=== PATIENT | female | born 1970 | race Caucasian/White ===

== ENCOUNTER 2018-10-11 20:32 | Emergency (ER) | payer BC ==
[~2018-10-11] VITALS: Ht 172.7 cm; Wt 93.0 kg
--- NOTE | 2018-10-11 20:34 | ED.ADGEN ---
Past History Past Medical History: Arthritis, Other Adult General Chief Complaint Chief Complaint ".. I getting severe neck and Rt. shoulder pain... it been worse the last couple days... I ve been worked up before... for chronic neck and lumbar pain... but the pain has really gotten worse... I see Dr. Chavarria and he said there is nothing new to do... but I am hurting really bad tonight.. " HPI HPI Patient is a 47 year old female who presents with above hx and complaints of arm back and shoulder pain. Pt is localized more to right shoulder trapezius area. Has some muscle spams in this location. Pt. rates pain as 10/10. Pt. has been using heating pad, muscle rubs... but no relief of pain. Pt. has a couple small lesions in this area . Patient does have an old herpes zoster scar on right shoulder. Pt. has had herpes zoster or shingles twice before. Skin however is not particularly sensitive. Patient denies any trauma. Patient denies any travel. Patient denies any history cancer. Patient denies any fever or chills. Patient denies any history of immunosuppression. Patient has had previous cervical and lumbar spine evaluations by MRI. MRI completed on 2017 showed broad-based disc bulge at C6 and 7. With mild central and foraminal stenosis. Also had a disc bulge at C7 and T1 with mild foraminal stenosis. This bulge at C5 and 6 showed broad based disc bulge asymmetric to the right. Pt also found to have some broad-based disc bulge with mild central stenosis and foraminal stenosis also at C3-4. Distal vascular intact on right. Patient is right-hand dominant. Pattern of right. Trapezius pain seems to follow cervical plexus of C5-6-7 on right. Review of Systems Review of Systems Constitutional: Denies fever or chills [] Eyes: Denies change in visual acuity, redness, or eye pain [] HENT: Denies nasal congestion or sore throat []complaints of severe right trapezius muscle spasms and pain. Respiratory: Denies cough or shortness of breath [] Cardiovascular: No additional information not addressed in HPI [] GI: Denies abdominal pain, nausea, vomiting, bloody stools or diarrhea [] : Denies dysuria or hematuria [] Musculoskeletal: Denies back pain or joint pain [] Integument: Denies rash or skin lesions [] Neurologic: Denies headache, focal weakness or sensory changes [] Endocrine: Denies polyuria or polydipsia [] All other systems were reviewed and found to be within normal limits, except as documented in this note. Family History Family History Noncontributory Current Medications Current Medications Current Medications Medications (Trade) Dose Ordered Sig/Yulia Start Time Stop Time Status Last Admin Dose Admin Ketorolac Tromethamine (Toradol 30mg Vial) 30 mg 1X ONCE 10/11/18 21:30 10/11/18 21:31 DC 10/11/18 21:12 30 MG Lactated Ringer's 1,000 ml @ 1,000 mls/hr Q1H 10/11/18 21:30 10/11/18 22:29 DC 10/11/18 21:11 1,000 MLS/HR Morphine Sulfate (Morphine 10mg Syringe) 10 mg 1X ONCE 10/11/18 21:30 10/11/18 21:31 DC 10/11/18 22:51 10 MG Ondansetron HCl (Zofran) 8 mg 1X ONCE 10/11/18 21:30 10/11/18 21:31 DC 10/11/18 21:25 8 MG Orphenadrine Citrate (Norflex) 60 mg 1X ONCE 10/11/18 21:30 10/11/18 21:31 DC 10/11/18 21:14 60 MG Allergies Allergies Allergies Coded Allergies Type Severity Reaction Last Updated Verified ibuprofen Adverse Reaction Mild gi upset 10/11/18 Yes Physical Exam Physical Exam Constitutional: in acute distress, non-toxic appearance. [] HENT: Normocephalic, atraumatic, bilateral external ears normal, oropharynx moist, no oral exudates, nose normal. [] Eyes: PERRLA, EOMI, conjunctiva normal, no discharge. [] Neck: Right trapezius tenderness, supple, no stridor. [] Cardiovascular:Heart rate regular rhythm, no murmur [] Lungs & Thorax: Bilateral breath sounds equal at apexes on auscultation [] Abdomen: Bowel sounds normal, soft, no tenderness, no masses, no pulsatile masses. [] Skin: Warm, dry, no erythema, no rash. [] A few very small lesions on right shoulder blade. Back: No tenderness, no CVA tenderness. [] Extremities: No tenderness, no cyanosis, no clubbing, ROM intact, no edema. [] Old herpes zoster scar right shoulder. Does have obvious muscle spasm right trapezius Neurologic: Alert and oriented X 3, normal motor function, normal sensory function, no focal deficits noted. []DTR are +2 at patella and brachial.. Psychologic: Affect normal, judgement normal, mood normal. [] Current Patient Data Vital Signs Vital Signs Date Time Temp Pulse Resp B/P (MAP) Pulse Ox O2 Delivery O2 Flow Rate FiO2 10/11/18 22:51 18 Room Air 10/11/18 20:35 97.5 78 99 Lab Results Laboratory Tests Test 10/11/18 21:00 White Blood Count 6.8 x10^3/uL (4.0-11.0) Red Blood Count 5.02 x10^6/uL (3.50-5.40) Hemoglobin 13.6 g/dL (12.0-15.5) Hematocrit 40.5 % (36.0-47.0) Mean Corpuscular Volume 81 fL (79-100) Mean Corpuscular Hemoglobin 27 pg (25-35) Mean Corpuscular Hemoglobin Concent 34 g/dL (31-37) Red Cell Distribution Width 15.5 % (11.5-14.5) H Platelet Count 450 x10^3/uL (140-400) H Neutrophils (%) (Auto) 45 % (31-73) Lymphocytes (%) (Auto) 45 % (24-48) Monocytes (%) (Auto) 7 % (0-9) Eosinophils (%) (Auto) 3 % (0-3) Basophils (%) (Auto) 1 % (0-3) Neutrophils # (Auto) 3.1 x10^3uL (1.8-7.7) Lymphocytes # (Auto) 3.0 x10^3/uL (1.0-4.8) Monocytes # (Auto) 0.5 x10^3/uL (0.0-1.1) Eosinophils # (Auto) 0.2 x10^3/uL (0.0-0.7) Basophils # (Auto) 0.1 x10^3/uL (0.0-0.2) Erythrocyte Sedimentation Rate 5 (0-25) Prothrombin Time 9.9 SEC (9.4-11.4) Prothrombin Time INR 1.0 (0.9-1.1) PTT 24 SEC (23-33) D-Dimer (Abbie) 0.26 mg/L (0.00-0.50) Sodium Level 144 mmol/L (136-145) Potassium Level 3.9 mmol/L (3.5-5.1) Chloride Level 107 mmol/L (98-107) Carbon Dioxide Level 26 mmol/L (21-32) Anion Gap 11 (6-14) Blood Urea Nitrogen 13 mg/dL (7-20) Creatinine 0.9 mg/dL (0.6-1.0) Estimated GFR (Cockcroft-Gault) 66.5 Glucose Level 121 mg/dL (70-99) H Calcium Level 8.9 mg/dL (8.5-10.1) Magnesium Level 1.8 mg/dL (1.8-2.4) Total Bilirubin 0.2 mg/dL (0.2-1.0) Direct Bilirubin < 0.1 mg/dL (0.0-0.2) Aspartate Amino Transferase (AST) 18 U/L (15-37) Alanine Aminotransferase (ALT) 24 U/L (14-59) Alkaline Phosphatase 100 U/L (46-116) Creatine Kinase 103 U/L (26-192) Troponin I Quantitative < 0.017 ng/mL (0-0.055) GV-Fgq-U-Type Natriuretic Peptide 21 pg/mL (0-124) Total Protein 7.5 g/dL (6.4-8.2) Albumin 3.8 g/dL (3.4-5.0) Lipase 261 U/L (73-393) EKG EKG My interpretation EKG shows a sinus rhythm at 71 bpm. No findings acute STEMI with contralateral changes.[] Radiology/Procedures Radiology/Procedures Interpretation of chest x-ray shows no acute cardiopulmonary findings. My interpretation of CT of neck shows reversal of normal cervical lordosis consistent with spasm. Does have moderate disc narrowing C5-C6-7 has spurring. . Has some central canal narrowing as well as foraminal stenosis which appears to be more on the right at C5-6-7. No obvious fracture. Does have DJD. See formal report when available Course & Med Decision Making Course & Med Decision Making Pertinent Labs and Imaging studies reviewed. (See chart for details). Pt. to use Ice packs if acute injury as needed. Take tylenol and ibuprofen for pain. Pt. to take Flexeril for spasms and Vicoprofen for marked pain. Monitor or recurrent Herpetic zoster-(feel this is currently unlikely by exam and low sed rate.). Pt. to follow up with Dr. Chavarria, consider revisit neurosurgical eval. , [facility] center. Possible trigger point injections may be helpful. Return if any concerns. Must follow up. [] Final Impression Final Impression 1. Neuropathy Cervical Pain[] 2. Cervical degenerative joint changes. 3. Trapezius spasm on Rt. 4. Leukocytosis-450 5. Sedimentation rate 5 Dragon Disclaimer Dragon Disclaimer This electronic medical record was generated, in whole or in part, using a voice recognition dictation system. Discharge Summary Visit Information Final Diagnosis Problems Medical Problems: (1) Cervical neuropathic pain Status: Acute Brief Hospital Course Allergies Allergies Coded Allergies Type Severity Reaction Last Updated Verified ibuprofen Adverse Reaction Mild gi upset 10/11/18 Yes Vital Signs Vital Signs Date Time Temp Pulse Resp B/P (MAP) Pulse Ox O2 Delivery O2 Flow Rate FiO2 10/11/18 22:51 18 Room Air 10/11/18 20:35 97.5 78 99 Lab Results Laboratory Tests Test 10/11/18 21:00 White Blood Count 6.8 x10^3/uL (4.0-11.0) Red Blood Count 5.02 x10^6/uL (3.50-5.40) Hemoglobin 13.6 g/dL (12.0-15.5) Hematocrit 40.5 % (36.0-47.0) Mean Corpuscular Volume 81 fL (79-100) Mean Corpuscular Hemoglobin 27 pg (25-35) Mean Corpuscular Hemoglobin Concent 34 g/dL (31-37) Red Cell Distribution Width 15.5 % (11.5-14.5) Platelet Count 450 x10^3/uL (140-400) Neutrophils (%) (Auto) 45 % (31-73) Lymphocytes (%) (Auto) 45 % (24-48) Monocytes (%) (Auto) 7 % (0-9) Eosinophils (%) (Auto) 3 % (0-3) Basophils (%) (Auto) 1 % (0-3) Neutrophils # (Auto) 3.1 x10^3uL (1.8-7.7) Lymphocytes # (Auto) 3.0 x10^3/uL (1.0-4.8) Monocytes # (Auto) 0.5 x10^3/uL (0.0-1.1) Eosinophils # (Auto) 0.2 x10^3/uL (0.0-0.7) Basophils # (Auto) 0.1 x10^3/uL (0.0-0.2) Erythrocyte Sedimentation Rate 5 (0-25) Prothrombin Time 9.9 SEC (9.4-11.4) Prothromb Time International Ratio 1.0 (0.9-1.1) Activated Partial Thromboplast Time 24 SEC (23-33) D-Dimer (Abbie) 0.26 mg/L (0.00-0.50) Sodium Level 144 mmol/L (136-145) Potassium Level 3.9 mmol/L (3.5-5.1) Chloride Level 107 mmol/L (98-107) Carbon Dioxide Level 26 mmol/L (21-32) Anion Gap 11 (6-14) Blood Urea Nitrogen 13 mg/dL (7-20) Creatinine 0.9 mg/dL (0.6-1.0) Estimated GFR (Cockcroft-Gault) 66.5 Glucose Level 121 mg/dL (70-99) Calcium Level 8.9 mg/dL (8.5-10.1) Magnesium Level 1.8 mg/dL (1.8-2.4) Total Bilirubin 0.2 mg/dL (0.2-1.0) Direct Bilirubin < 0.1 mg/dL (0.0-0.2) Aspartate Amino Transf (AST/SGOT) 18 U/L (15-37) Alanine Aminotransferase (ALT/SGPT) 24 U/L (14-59) Alkaline Phosphatase 100 U/L (46-116) Creatine Kinase 103 U/L (26-192) Troponin I Quantitative < 0.017 ng/mL (0-0.055) ZP-Dkt-Z-Type Natriuretic Peptide 21 pg/mL (0-124) Total Protein 7.5 g/dL (6.4-8.2) Albumin 3.8 g/dL (3.4-5.0) Lipase 261 U/L (73-393) Brief Hospital Course Ms. Navarrete is a 47 old female who presented with severe Rt. trapezius spasms and pain. Suspect neuropathic pain. Discharge Information Condition at Discharge: Improved, Stable Disposition/Orders: D/C to Home Dischare Medications Current Medications Lactated Ringer's 1,000 ml @ 1,000 mls/hr Q1H IV Last administered on at 21:11; Admin Dose 1,000 MLS/HR; Start 10/11/18 at 21:30; Stop 10/11/18 at 22:29; Status DC Orphenadrine Citrate (Norflex) 60 mg 1X ONCE IV Last administered on at 21:14; Admin Dose 60 MG; Start 10/11/18 at 21:30; Stop 10/11/18 at 21:31; Status DC Ketorolac Tromethamine (Toradol 30mg Vial) 30 mg 1X ONCE IV Last administered on 10/11/18at 21:12; Admin Dose 30 MG; Start 10/11/18 at 21:30; Stop 10/11/18 at 21:31; Status DC Morphine Sulfate (Morphine 10mg Syringe) 10 mg 1X ONCE SQ Last administered on 10/11/18at 22:51; Admin Dose 10 MG; Start 10/11/18 at 21:30; Stop 10/11/18 at 21:31; Status DC Ondansetron HCl (Zofran) 8 mg 1X ONCE IV Last administered on 10/11/18at 21:25 ; Admin Dose 8 MG; Start 10/11/18 at 21:30; Stop 10/11/18 at 21:31; Status DC Active Scripts Active Cyclobenzaprine Hcl 10 Mg Tablet 10 Mg PO TIDPRN Hydrocodone-Ibuprofen 7.5-200 (Hydrocodone/Ibuprofen) 1 Each Tablet 1 Tab PO PRN Q6HRS PRN Dragon Disclaimer This chart was dictated in whole or in part using Voice Recognition software in a busy, high-work load, and often noisy Emergency Department environment. It may contain unintended and wholly unrecognized errors or omissions. RAIN CHAMORRO MD Oct 11, 2018 20:34
[2018-10-11 20:35] VITALS: BP 127/109
[2018-10-11] MEDS: MORPHINE SULFATE 10 MG/ML SYRINGE. SQ ONE ×2 (21:10→22:51)
[2018-10-11 21:12] LABS: BASO # 0.1 x10^3/uL (0.0-0.2); BASO % 1 % (0-3); EOS # 0.2 x10^3/uL (0.0-0.7); EOS % 3 % (0-3); HEMATOCRIT 40.5 % (36.0-47.0); HEMOGLOBIN 13.6 g/dL (12.0-15.5); LYMPH % 45 % (24-48); MEAN CORPUSCULAR HEMOGLOBIN 27 pg (25-35); MEAN CORPUSCULAR HGB CONC 34 g/dL (31-37); MEAN CORPUSCULAR VOLUME 81 fL (79-100); MONO # 0.5 x10^3/uL (0.0-1.1); MONO % 7 % (0-9); NEUT # 3.1 x10^3uL (1.8-7.7); NEUT % 45 % (31-73); PLATELET COUNT 450 x10^3/uL (140-400); RED BLOOD COUNT 5.02 x10^6/uL (3.50-5.40); RED CELL DISTRIBUTION WIDTH 15.5 % (11.5-14.5); WHITE BLOOD COUNT 6.8 x10^3/uL (4.0-11.0)
[2018-10-11] MEDS ORDERED: ORPHENADRINE CITRATE 60 MG/2 ML VIAL. IV ONE (21:30)
[2018-10-11] MEDS ORDERED: IV RINGERS SOLUTION,LACTATED 1,000 ML IV SCH (21:30)
[2018-10-11] MEDS ORDERED: KETOROLAC 30 MG/ML VIAL. IV ONE (21:30)
[2018-10-11] MEDS ORDERED: ONDANSETRON PF 4 MG/2 ML VIAL. IV ONE (21:30)
[2018-10-11 21:33] LABS: ALBUMIN 3.8 g/dL (3.4-5.0); ALK PHOS 100 U/L (46-116); ALT (SGPT) 24 U/L (14-59); ANION GAP 11 (6-14); AST (SGOT) 18 U/L (15-37); BLOOD UREA NITROGEN 13 mg/dL (7-20); CALCIUM 8.9 mg/dL (8.5-10.1); CARBON DIOXIDE 26 mmol/L (21-32); CHLORIDE 107 mmol/L (98-107); CREATININE 0.9 mg/dL (0.6-1.0); GFR 66.5; GLUCOSE 121 mg/dL (70-99); LIPASE 261 U/L (73-393); MAGNESIUM 1.8 mg/dL (1.8-2.4); POTASSIUM 3.9 mmol/L (3.5-5.1); SODIUM 144 mmol/L (136-145); TOTAL BILIRUBIN 0.2 mg/dL (0.2-1.0); TOTAL PROTEIN 7.5 g/dL (6.4-8.2)
[2018-10-11 21:34] LABS: DIRECT BILIRUBIN < 0.1 mg/dL (0.0-0.2)
--- NOTE | 2018-10-11 22:15 | EKG ---
[address] [address] Test Date: 2018-10-11 Test Time: 21:30:30 Pat Name: PARISH NIXON Department: Room: Gender: F [employer]room Machine Operator: PREET : 1970 Requested By: RAIN CHAMORRO Order Number: [id number] Reading MD: Luiz Olivas MD Measurements Intervals [place] Rate: 71 P: 34 IA: 148 QRS: 12 QRSD: 80 T: 29 QT: 392 QTc: 431 Interpretive Statements SINUS RHYTHM Electronically Signed On 10-13-2018 14:36:05 CDT by Luiz Olivas MD
[2018-10-11 22:16] LABS: SEDIMENTATION RATE 5 (0-25)
--- NOTE | 2018-10-11 22:33 | RAD ---
Head CT without contrast and cervical spine CT without contrast dated 10/11/2018. No comparison available. Clinical data indication: Pain after injury. TECHNIQUE: Contiguous axial imaging the head was performed from skull base to vertex. No contrast administered. One or more of the following individualized dose reduction techniques were utilized for this examination: 1. Automated exposure control 2. Adjustment of the mA and/or kV according to patient size 3. Use of iterative reconstruction technique. FINDINGS: Ventricles and sulci are mildly prominent for age. No midline shift or mass effect. Brain parenchyma is of normal attenuation. No hemorrhage or extra-axial collection. Posterior fossa and brainstem unremarkable. Subtotal opacification of the left maxillary sinus. Minimal mucosal thickening right maxillary sinus. Mastoid air cells are clear. No apparent calvarial abnormality. Images of the cervical spine acquired from skull base to T2. There is reversal of the normal cervical lordosis with slight anterolisthesis of C5 on C6. Vertebral body heights are maintained. No prevertebral soft tissue swelling. Posterior elements are intact. No evidence of fracture. Mild to moderate endplate hypertrophic changes throughout. Moderate disc space narrowing at C5-C6 and C6-C7 with multilevel uncovertebral spurring. There is resultant mild central stenosis at C5-C6 and C6-C7. Mild bilateral foraminal narrowing at these levels. Visualized soft tissue structures unremarkable. Mild emphysema. IMPRESSION HEAD: No evidence of acute intracranial abnormality. Impression cervical spine: 1. No evidence of fracture or malalignment. 2. Moderate multilevel spondylosis. Electronically signed by: Shlomo Orellana MD (10/11/2018 10:31 PM) [facility]
--- NOTE | 2018-10-11 23:33 | RAD ---
CHEST PA LATERAL Technique: PA and lateral views of the chest were obtained. Clinical History: Neuropathy, neck pain radiating down right arm Comparison: None. Findings: The heart and pulmonary vasculature appear within normal limits. The lungs are clear. The pleural margins are clear. Impression: No acute chest process is seen. Electronically signed by: Dash Cabral III, MD (10/11/2018 11:30 PM) [facility]
[2018-10-11] MEDS ORDERED: HYDR-1179 PO (23:35)
[2018-10-11] MEDS ORDERED: CYCL-331 PO (23:35)
== END 2018-10-11 23:42 | disposition home or self-care (01) ==
LOC: ER 20:32
DX: G54.2 Cervical root disorders, not elsewhere classified (principal); M25.511 Pain in right shoulder; D72.829 Elevated white blood cell count, unspecified; L98.8 Other specified disorders of the skin and subcutaneous tissue; M19.90 Unspecified osteoarthritis, unspecified site; M54.5 Low back pain; G89.29 Other chronic pain; Z88.6 Allergy status to analgesic agent
CPT/HCPCS: 36415; 70450; 71046; 72125; 80048; 80076; 82550; 83690; 83735; 83880; 84443; 84484; 85025; 85379; 85610; 85651; 85730; 93005; 96372; 96374; 96375; 99284; J1885; J2270; J2360; J2405; J7120